=== PATIENT | female | born 1995 | race Caucasian/White ===

== ENCOUNTER 2025-06-02 09:16 | Emergency (ER) | payer MEDICAID, SELFPAY ==
[2025-06-02 09:17] VITALS: BP 111/79; PULSE 92; RESP 14; TEMP 35.6; O2SAT 98; BMI 16.4
--- NOTE | 2025-06-02 09:28 | EDS_ITS ---
HPI HPI - Female History of Present Illness Chief Complaint: Vag Bleeding Informant: patient Pain Pain: Positive for Pelvic Pain Onset: Yesterday Context: Sudden Onset Timing: Continuous Quality: Positive for Cramping Location: RLQ, LLQ, Suprapubic and Back Worsened by: - (Nothing) Relieved by: - (Nothing) Bleeding Issue: Positive for Vaginal bleeding Onset: Yesterday Context: Sudden Onset Timing: Continuous Current Severity: Heavy Current pads/hr: 1 Maximum Severity: Heavy Associated Symptoms Associated Symptoms: Positive for Frequency; Negative for Dysuria Narrative Narrative: Patient presents with vaginal bleeding and cramping that began last night. Patient states she recently took a Plan B pill. Patient states that her bleeding and cramping began rather suddenly last night. Patient states she has been going through approximately 1 pad per hour this morning. Patient states her pain radiates into her back. Patient admits to some urinary frequency but denies any dysuria. Patient states bleeding is heavier than her normal period. Patient states her pain is mainly over her lower abdomen. Patient states nothing makes it better and nothing makes it worse. PFSH PFSH Medical History no medical history no medical history Allergy/AdvReac Type Severity Reaction Status Date / Time No Known Allergies Allergy Verified 06/02/25 09:17 Surgical History no surgical history no surgical history Social History Smoking Status: Never smoker ROS ROS ED Constitutional Constitutional ED: Denies chills or fever(s) Eyes Eyes: Denies blurry vision or change in vision ENT ENT ED: Denies rhinorrhea or sore throat Cardiovascular Cardiovascular: Denies chest pain or palpitations Respiratory/Chest Respiratory/Chest: Denies cough or dyspnea Gastrointestinal Gastrointestinal: Denies nausea or vomiting Genitourinary Genitourinary ED: Reports hematuria and urinary frequency; Denies dysuria Musculoskeletal Musculoskeletal: Reports back pain; Denies neck pain Integumentary Denies abscess or rash Neurologic Neurologic: Denies headache(s) or weakness Allergic/Immunologic Allergic/Immunologic ED: Denies mouth swelling or urticaria EXAM Physical Exam Const Vital Signs: 06/02/25 09:17 06/02/25 11:17 06/02/25 12:59 Temperature 96.1 F L 96.1 F L Temperature Source Temporal Pulse Rate 92 74 74 Respiratory Rate 14 16 16 Blood Pressure 111/79 110/84 H 110/84 H Blood Pressure Mean 89 92 92 Pulse Ox 98 98 98 Oxygen Delivery Method Room Air Positive well nourished and well developed General Appearance ED: well developed and NAD HEENT Reports moist mucous membranes Neck supple and no JVD Resp normal respiratory effort and clear to auscultation bilaterally GI soft to palpation and non-distended Palpation: tender LLQ, RLQ and suprapubic; Negative for guarding Neuro oriented x3, CN's II-XII intact bilaterally and no sensory deficits noted Sensorium / Orientation: alert Motor Exam: strength 5/5 throughout Psych mental status grossly normal MDM MDM MDM Narrative Medical decision making narrative: Differential diagnosis includes dysmenorrhea, medication side effect, ectopic , and anemia. CBC will be obtained to assess for leukocytosis and anemia. Basic metabolic profile will be obtained to assess for electrolyte abnormality and renal function. Urinalysis will be obtained to assess for urinary tract infection and hematuria. Serum hCG will be obtained to assess for . History & Record Review Additional record(s) reviewed:: No prior records Lab Data Attestation: I reviewed the patient's lab results. Lab results narrative: CBC was reviewed and was within normal limits. Basic metabolic profile was reviewed and was within normal limits. Serum hCG was reviewed and was negative. Urinalysis was reviewed. Occult blood was 250 with greater than 100 red blood cells. There is no evidence of urinary tract infection. Labs: Laboratory Results - last 24 hr 06/02/25 06/02/25 09:36 10:45 WBC 5.0 RBC 4.06 L Hgb 13.3 Hct 39.0 MCV 96.1 MCH 32.8 H MCHC 34.1 RDW Std Deviation 40.9 RDW Coeff of [place] 11.6 Plt Count 259 MPV 9.5 Immature Gran % (Auto) 0.200 Neut % (Auto) 51.5 Lymph % (Auto) 40.1 [place] % (Auto) 5.6 Eos % (Auto) 2.0 Baso % (Auto) 0.6 Absolute Neuts (auto) 2.6 Absolute Lymphs (auto) 2.01 Nucleated RBC % 0 Sodium 140 Potassium 4.1 Chloride 104 Carbon Dioxide 25.3 Anion Gap 10 BUN 13 Creatinine 0.84 Estim Creat Clear Calc 72.56 Est GFR (MDRD) Non-Af 98 BUN/Creatinine Ratio 15.3 Glucose 88 Calcium 9.2 Serum , Qual NEGATIVE Urine Color Red Urine Clarity Turbid Urine pH 7.0 Ur Specific [place] 1.010 Urine Protein 500 H Urine Glucose (UA) Normal Urine Ketones 5 H Urine Occult Blood 250 H Urine Nitrite Negative Urine Bilirubin Negative Urine Urobilinogen Normal Ur Leukocyte Esterase Negative Urine RBC > 100 SEEN Urine WBC 0-5 SEEN Ur Squamous Epith Cells 0-5 SEEN Urine Bacteria 0 SEEN Urine Mucus 0 SEEN Treatment and Re-Evaluation Narrative: Patient was given IV fluids. Patient was advised of her findings. Patient was instructed to drink plenty of fluids. Patient was given a prescription for short course of [place] for pain. Patient was instructed to follow-up with her [employer] in 5 to 7 days. Patient was instructed to return if worse in any way. Patient understood and was agreeable with plan. All questions were answered. Discharge Plan Triage Chief Complaint: Vag Bleeding ED Provider: Noam Levi Dx/Rx/DC Orders Clinical Impression: Dysmenorrhea Instructions: ED Dysfunctional Uterine Bleeding Primary Care Provider: Care Physician,No Primary Referrals: Jigna Kothari DO [Med Staff - Active Staff] - 5-7 Days Care Physician,No Primary [Primary Care Provider] - Print Language: Korean Disposition Disposition: Home, Self Care Discharge Date/Time: 06/02/25 13:03
[2025-06-02 10:40] LABS: Hematocrit 39.0 % (37-47); Hemoglobin 13.3 g/dL (12.0-15.0); Immature Granulocytes Count 0.010 X10^3/uL (0.0-0.0); Mean Corp Hgb Conc 34.1 g/dL (32-36); Mean Corpuscular Volume 96.1 fL (81-99); Mean Platelet Vol. 9.5 fl (6.2-12.0); NRBC Flagged by Analyzer 0 % (0-5); Platelet Count 259 K/mm3 (150-450); RBC Distribution Width CV 11.6 % (11.6-14.6); RBC Distribution Width SD 40.9 fl (35.1-43.9); Red Blood Count 4.06 M/mm3 (4.2-5.4); White Blood Count 5.0 K/mm3 (4.4-11.0)
[2025-06-02] MEDS: 0.9% Normal Saline (1000mL) 1,000 ML 999 ML IV (10:47)
[2025-06-02 10:52] LABS: Mucous, Urine 0 SEEN /hpf (<or=2+)
[2025-06-02 10:58] LABS: Color, Urine Red (Yellow); Glucose, Dipstick Normal (Normal); Ketone-Dipstick 5 mg/dl (Negative); Leukocyte Esterase-Dipstick Negative /ul (Negative); Nitrite-Dipstick Negative (Negative); Occult Blood-Urine 250 /ul (Negative); Protein-Dipstick 500 mg/dl (Negative); Specific Gravity, Urine 1.010 (1.002-1.030); Urine Bilirubin Dipstick Negative (Negative)
[2025-06-02 10:59] LABS: Internal QC Validated? YES +Cl - CLEAR BKGD; Pregnancy, Serum, hCG Quali. NEGATIVE Negative; Record Kit Lot#, Serum Preg. 0000947241
[2025-06-02 11:17] VITALS: BP 110/84; PULSE 74; RESP 16; O2SAT 98
[2025-06-02 11:17] LABS: Anion Gap 10 (5-15); BUN 13 mg/dL (4-19); BUN/Creat Ratio 15.3 RATIO (10-20); Calcium,Total 9.2 mg/dL (7.6-11.0); Carbon Dioxide 25.3 mmol/L (21.0-32.0); Chloride 104 mmol/L (98-108); Estimated Creatinine Clearance 72.56 ml/min (50-250); Glucose 88 mg/dL (70-99); Potassium 4.1 mmol/L (3.3-5.1)
[2025-06-02 11:35] LABS: Red Blood Cells-Urine > 100 SEEN /hpf (0-5); Squamous Epithelial Cells - UA 0-5 SEEN /hpf (5-10)
[2025-06-02 12:59] VITALS: BP 110/84; PULSE 74; RESP 16; TEMP 35.6; O2SAT 98
== END 2025-06-02 13:03 | disposition home or self-care (01) ==
PROVIDERS: Emergency Provider Emergency Medicine; Visit Provider Emergency Medicine
DX: N94.6 Dysmenorrhea, unspecified (principal)
CPT/HCPCS: 80048; 81001; 84703; 85025; 96360; 96361; 99282; A4216